=== PATIENT | female | born 1985 | race Caucasian/White ===

== ENCOUNTER → 2017-06-17 | Emergency (ER) | payer BC ==
[~2017-06-17] VITALS: Ht 165.1 cm; Wt 68.0 kg
[~2017-06-17] MED LIST: FLONASE ALLERG9.9 ML NASAL; KETO10TA2 PO; ZANTAC300 MG PO; ZITHROMAX TRI-500 MG PO
== END | disposition home or self-care (01) ==
LOC: ER 03:51
DX: B34.9 Viral infection, unspecified (principal); J32.8 Other chronic sinusitis

== ENCOUNTER 2017-07-12 21:39 | Emergency (ER) | payer BC ==
[~2017-07-12] VITALS: Ht 167.6 cm; Wt 68.0 kg
== END 2017-07-12 22:37 | disposition home or self-care (01) ==
LOC: ER 21:39
DX: J06.9 Acute upper respiratory infection, unspecified (principal)